=== PATIENT | female | born 1940 | race Caucasian/White ===

== ENCOUNTER → 2017-08-27 08:35 | Outpatient (CLI) | payer MEDICARE ==
[2015-05-27 00:08] VITALS: BMI 35.0
[~2017-08-27 08:35] MED LIST: ATIVAN1 MG PO; CALCIUM 250+D T1 TAB PO; CARAFATE1 G PO; INVEGA6 MG/BLIST PO; K-DUR20 MEQ PO; LASIX40 MG PO; LEVAQUIN500 MG PO; LOPRESSOR25 MG PO; METAMUCIL FIB1 WAFER PO; MOBIC7.5 MG PO; PRILOSEC20 MG PO; ZOLOFT100 MG PO; ZYRTEC10 MG PO
== END | disposition home or self-care (01) ==
LOC: D.MRI 08:35
DX: M43.16 Spondylolisthesis, lumbar region (principal); R26.81 Unsteadiness on feet

== ENCOUNTER 2017-09-22 17:29 | Emergency (ER) | payer MEDICARE ==
[2015-05-27 00:08] VITALS: BMI 35.0
== END 2017-09-22 20:05 | disposition home or self-care (01) ==
LOC: D.ER 17:29
DX: S00.01XA Abrasion of scalp, initial encounter (principal); W19.XXXA Unspecified fall, initial encounter; Y93.89 Activity, other specified; Y92.128 Other place in nursing home as the place of occurrence of the external cause; S00.03XA Contusion of scalp, initial encounter; M79.1 Myalgia

== ENCOUNTER 2018-02-23 17:44 | Emergency (ER) | payer MEDICARE ==
[~2018-02-23] VITALS: Ht 165.1 cm; Wt 102.3 kg
[2018-02-23 17:52] VITALS: Ht 165.1 cm; Wt 102.3 kg
[2018-02-23] MEDS ORDERED: HYDROCODON-ACE1 EAC7 PO (18:54)
[2018-02-23 19:14] VITALS: BP 151/85
== END 2018-02-23 19:15 | disposition other institution (70) ==
LOC: D.ER 17:44
DX: S20.212A Contusion of left front wall of thorax, initial encounter (principal); W22.01XA Walked into wall, initial encounter; Y93.89 Activity, other specified; Y92.019 Unspecified place in single-family (private) house as the place of occurrence of the external cause; I50.9 Heart failure, unspecified